=== PATIENT | male | born 1935 | race Caucasian/White ===

== ENCOUNTER 2019-08-15 14:07 | Emergency (ER) | payer MEDICARE, OTHER ==
[~2019-08-15] VITALS: Ht 157.5 cm; Wt 72.9 kg
--- NOTE | 2019-08-15 15:10 | REP ---
Right ribs five views: There is a fracture of the right eighth rib anterolaterally. PA chest: There are no comparisons. There is no pneumothorax, hemothorax or pulmonary contusion. Lung miller are clear. Cardiac size is normal. The danette, mediastinum, skeletal structures are unremarkable. Impression: Negative PA chest. Electronically Signed by Shyam Cameron MD 08/15/2019 03:01 P
[2019-08-15] MEDS ORDERED: IBUP-1022 PO (15:31)
[2019-08-15] MEDS ORDERED: ACETAMINOPHEN 325 MG TAB PO ONE (15:45)
[2019-08-15] MEDS ORDERED: AMMONIA AROMATIC INHALANT (FLOOR STOCK) As Ordered ONE (16:15)
[2019-08-15 16:24] VITALS: BP 159/71
== END 2019-08-15 16:29 | disposition home or self-care (01) ==
LOC: M ED 14:07
DX: S22.31XA Fracture of one rib, right side, initial encounter for closed fracture (principal); W01.0XXA Fall on same level from slipping, tripping and stumbling without subsequent striking against object, initial encounter; Y92.89 Other specified places as the place of occurrence of the external cause; R06.02 Shortness of breath; Z85.46 Personal history of malignant neoplasm of prostate